=== PATIENT | female | born 1960 | race American Indian/Alaskan Native ===

== ENCOUNTER 2017-01-07 08:33 | Outpatient (CLI) | payer BC ==
[2017-01-07 09:07] LABS: Blood Urea Nitrogen 11 mg/dL (7-17)
[2017-01-07] MEDS ORDERED: NACL ONE (09:12)
--- NOTE | 2017-01-07 12:29 | Cat Scan Report ---
CT ABDOMEN AND PELVIS WITHOUT AND WITH CONTRAST INDICATION: Hematuria. COMPARISON: None similar. FINDINGS: Abdomen and pelvis CT performed before and after intravenous administration of 100 cc of Omnipaque 300. 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 Slight nonspecific distal esophageal prominence/thickening. Normal heart size. No effusions. ABDOMEN: Precontrast images demonstrate cholecystectomy clips. Numerous small bilateral renal nonobstructing calculi/calcifications, at least 5 in number on either side measure 4 mm or smaller. Postcontrast images demonstrate unremarkable liver, spleen, pancreas, nonaneurysmal abdominal aorta, IVC and non-hydronephrotic kidneys. No ascites or size significant adenopathy. Slight diffuse bilateral adrenal prominence/possible hyperplasia. Nonopacified GI tract evaluation limited, though grossly nonobstructive. Mild colonic stool, most along the ascending colon. Rectus diastasis by approximately 6 cm transverse noted about the umbilicus with mild outward hernia-like bowing. PELVIS: Uterine fibroids suspected, including approximately 3 cm on the right, axial image 237, series 4. Few pelvic phleboliths. Unremarkable urinary bladder and the rectosigmoid. No free fluid or significant adenopathy. Approximately 8mm anterolisthesis of L5 over S1 with severe bilateral facet arthropathy and moderate to severe disc narrowing. Moderate bilateral facet arthropathy at L4-L5 also noted. CONCLUSION: 1. Multiple bilateral nonobstructing renal calculi, as described. 2. Various other incidental findings, including those at the lung bases, cholecystectomy, rectus diastasis, uterine fibroids and advanced lower lumbar spine degenerative changes, amongst others, as above. Thank you for the opportunity to participate in this patient's care.
== END 2017-01-07 08:34 | disposition home or self-care (01) ==
LOC: CT 08:33
PROVIDERS: ATTEND Urology
DX: N20.0 Calculus of kidney (principal); D25.9 Leiomyoma of uterus, unspecified; Q79.59 Other congenital malformations of abdominal wall; M47.896 Other spondylosis, lumbar region; M12.88 Other specific arthropathies, not elsewhere classified, other specified site; R31.9 Hematuria, unspecified; Z90.49 Acquired absence of other specified parts of digestive tract
CPT/HCPCS: 36415; 74178; 82565; 84520; Q9967

== ENCOUNTER 2017-01-22 10:23 | Day surgery (SDC) | payer BC ==
[~2017-01-22 10:23] MED LIST: ANCEF/STERILE WATER 2 GM/20 ML 2 GM/20 ML SYRINGE IV NR
[2017-01-22] MEDS ORDERED: DECADRON ONE (11:23)
[2017-01-22] MEDS ORDERED: ZOFRAN ONE (11:23)
[2017-01-22] MEDS ORDERED: XYLOCAINE MPF 2% ONE (11:23)
[2017-01-22] MEDS ORDERED: DIPRIVAN 10 MG/ML IV ONE (11:24)
[2017-01-22] MEDS ORDERED: SUBLIMAZE ONE (11:24)
[2017-01-22] MEDS ORDERED: NACL 0.9% 1000 ML 1,000 ML ONE (11:25)
[2017-01-22] MEDS ORDERED: DILAUDID IV PRN (11:54)
[2017-01-22] MEDS ORDERED: ZOFRAN IV PRN (11:54)
[2017-01-22] MEDS ORDERED: PERCOCET 5/325 PO PRN (11:54)
[2017-01-22] MEDS ORDERED: VERSED IV NR (12:00)
[2017-01-22] MEDS ORDERED: NACL 0.9% 1000 ML 1,000 ML IV SCH (12:00)
[2017-01-22] MEDS ORDERED: PEPCID PO NR (12:00)
--- NOTE | 2017-01-22 12:04 | Anesthesia Consultation ---
Anesthesia Consult and Med Hx Date of service: 01/22/17 - Airway Anesthetic Teeth Evaluation: Good ROM Head & Neck: Adequate Mental/Hyoid Distance: Adequate Mallampati Class: Class II Intubation Access Assessment: Probably Good - Pulmonary Exam CTA: Yes - Cardiac Exam Cardiac Exam: RRR - Pre-Operative Health Status ASA Pre-Surgery Classification: ASA2 Proposed Anesthetic Plan: General - Pulmonary Hx Smoking: No Hx Sleep Apnea: No ([place] PRE SCREEN HIGH RISK) - Cardiovascular System Hx Hypertension: Yes ("JUST WATCHING"- NO MEDS) Hx Peripheral Vascular Disease: No - Central Nervous System Hx Seizures: No CVA: No Hx Psychiatric Problems: Yes (ANXIETY) - Gastrointestinal Hx Gastroesophageal Reflux Disease: Yes - Endocrine Hx Renal Disease: No (STONES) Hx Insulin Dependent Diabetes: No Hx Non-Insulin Dependent Diabetes: No Hx Hypothyroidism: No - Other Systems Hx Obesity: Yes
--- NOTE | 2017-01-22 12:04 | Anesthesia Day of Surgery ---
Anesthesia Day of Surgery - Day of Surgery Patient Examined: Yes Patient H&P Reviewed: Yes Patient is NPO: Yes
[2017-01-22] MEDS ORDERED: ANCEF ONE ×2 (12:43)
[2017-01-22] MEDS ORDERED: ANCEF/STERILE WATER 2 GM/20 ML 2 GM/20 ML SYRINGE IV NR (13:00)
[2017-01-22] MEDS ORDERED: WATER FOR IRRIG STERILE IR ONE (13:03)
[2017-01-22] MEDS ORDERED: OMNIPAQUE 300 MG/50 ML (CATH LAB) IV ONE (13:04)
--- NOTE | 2017-01-22 13:20 | Post Anesthesia Evaluation ---
- Post Anesthesia Evaluation Patient Participated: Yes Airway Patent: Yes Stable Respiratory Function: Yes Nausea/Vomiting: No Temp > 96.8F: Yes Pain Manageable: Yes Adequeate Hydration: Yes Anesthesia Complications: No
--- NOTE | 2017-01-22 13:28 | Post Operative Note ---
Date of procedure: 01/22/17 Pre-op diagnosis: hematuria Post-op diagnosis: same Findings: normal cystocele Procedure: cysto rpgs Anesthesia: NASIM Surgeon: JOSELYN LOCKE Estimated blood loss: none Pathology: none Condition: stable Disposition: PACU
--- NOTE | 2017-01-22 13:29 | Discharge Summary ---
Short Stay Discharge Plan Activity: no restrictions Weight Bearing Status: Full Weight Bearing Diet: low fat, low cholesterol, low salt Special Instructions: other (inc fluids ) Follow up with: DR SAMARIA [Other] - 7 Days JOSELYN LOCKE MD [Staff Physician] - 14 Days
[2017-01-22] MEDS ORDERED: PERCOCET 5/325 PO ONE (16:00)
[2017-01-22 17:26] VITALS: BP 110/52
--- NOTE | 2017-01-23 09:31 | Fluoroscopy Report ---
Retrograde pyelogram: Hematuria. Injections of contrast made into the distal ureters bilaterally with good opacification of the ureters and intrarenal collecting systems. No filling defects, contour abnormality, or other finding. Impression: Normal exam.
--- NOTE | 2017-01-27 09:13 | Post Operative Note ---
Date of procedure: 01/27/17 Pre-op diagnosis: painful voiding Post-op diagnosis: same Findings: No bladder lesions Procedure: Cystoscopy hydrodistention urethral dilatation retrogrades Procedure Preop diagnosis painful voiding microscopic hematuria Postoperative diagnosis the same Procedure cystoscopy hydrodistention retrogrades Surgeon Dr.'s wright Anesthesia Gen. Findings\ This is a patient with painful voiding irritative symptoms who now presents for cystoscopy . Procedure Patient was brought to the operating room placed on the operating table. Following induction of general anesthesia placed in the lithotomy position prepped and draped in usual sterile fashion Cystoscopy showed a normal urethra and normal bladder epithelium. However the urethra was slightly narrow and tight and was dilated. There were no bladder lesions no biopsies were obtained. The capacity was good. Patient procedure well the retrograde showed no persistent filling defects. The dictation was delayed because of the dictation [place] was delayed. There was an outage of all the dictation throughout the country Patient tolerance procedure well there were no acute findings or to recovery room in stable condition Anesthesia: GETA Surgeon: JOSELYN LOCKE Estimated blood loss: none Pathology: none Condition: stable Disposition: PACU
== END 2017-01-22 16:30 | disposition home or self-care (01) ==
LOC: OR 10:23
PROVIDERS: ATTEND Urology
DX: N35.9 Urethral stricture, unspecified (principal); I10 Essential (primary) hypertension; F41.9 Anxiety disorder, unspecified; K21.9 Gastro-esophageal reflux disease without esophagitis; E66.9 Obesity, unspecified; Z68.32 Body mass index [BMI] 32.0-32.9, adult; Z87.440 Personal history of urinary (tract) infections
CPT/HCPCS: 52281; 74420; A4217; J0690; J1100; J2250; J2405; J2704; J7030; Q9967; J3010

== ENCOUNTER 2020-10-04 21:27 | Emergency (ER) | payer BC, OTHER ==
[2020-10-04 21:53] VITALS: BP 128/65
--- NOTE | 2020-10-04 23:10 | Event Note ---
ED Screening Note Date of service: 10/04/20 Time: 23:05 ED Screening Note: This initial assessment/diagnostic orders/clinical plan/treatment(s) is/are subject to change based on patients health status, clinical progression and re- assessment by fellow clinical providers in the ED. Further treatment and workup at subsequent clinical providers discretion. Patient/guardian urged not to elope from the ED as their condition may be serious if not clinically assessed and managed. Initial orders include:
--- NOTE | 2020-10-04 23:11 | Emergency Department Report ---
Chief Complaint: Vaginal Bleeding Stated Complaint: VAGINANL BLEEDING/UTERINE POLYPS Time Seen by Provider: 10/04/20 23:10 - HPI History of Present Illness: 60-year-old female with a history of uterine polyp who sees Dr. Leon at [facility] presents the ED today complaining of moderate heavy vaginal bleeding that began today. Patient states that initially began light vaginal bleeding a week ago when she went to follow-up with Dr. Leon who got an ultrasound in the office. Patient states that she was told to return on Friday and has an appointment in 5 days. Patient denies any fever, chills, nausea vomiting, fatigue, dizziness, headache, light headedness or any other symptoms. Patient states that she just got worried because bleeding was heavy today so she came to the ED. Patient states she has had a uterine polyp for some years and has been following up with Dr. Leon since then. - ROS Review of Systems: As noted in HPI - Exam Vital Signs: Vital Signs 10/04/20 21:51 Temperature 99.1 F Pulse Rate 78 Respiratory 22 Rate Blood Pressure 128/65 O2 Sat by Pulse 98 Oximetry Physical Exam: GENERAL: Alert and oriented x3, no apparent distress, Normal Gait, atraumatic. HEAD: Head is normocephalic and a-traumatic. Conjunctive is pink and moist LUNGS: Symetrical with respiration, No wheezing, no rales or crackles, CTAB. HEART: S1, S2 present, regular rate and rhythm without murmur, no rubs, no gallops. Non tender to palpation ABDOMEN: No organomegaly was noted,Positive bowel sounds, soft, and non- distended. EXTREMITIES/MUSCULOSKELETAL: No cyanosis, clubbing, rash, lesions or edema. Full ROM bilaterally. Capillary refill present 2+ NEUROLOGIC: The patient is cooperative with no focal neurologic deficits. SKIN: Warm and dry, No lesions, No ulceration or induration present. MSE screening note: Focused history and physical exam performed. Due to findings the following was ordered: ED Medical Decision Making - Medical Decision Making This 60-year-old female presents with uterine polyp. Plan is to follow-up with Dr. Leon on Friday and keep her appointment. Bleeding protocol discussed with patient. Discussed with patient has any worsening bleeding or new symptoms to return to ED immediately. Patient states she has been feeling her usual self and not symptomatic. ED Disposition for [facility] Clinical Impression: Abnormal uterine bleeding due to endocervical polyp Disposition: - TO HOME OR SELFCARE Is pt being admited?: No Does the pt Need Aspirin: No Condition: Stable Instructions: Abnormal Uterine Bleeding Additional Instructions: Make sure to follow up with the [facility] as discussed. Take all your medications as you've been prescribed. If you have any worsening symptoms or develop new symptoms please return to ED immediately. Prescriptions: Ibuprofen [Motrin] 800 mg PO Q8HR #30 tablet traMADoL [Ultram 50 MG tab] 50 mg PO Q6HR PRN #20 tablet PRN Reason: Pain Referrals: PRIMARY CARE, [Primary Care Provider] - 3-5 Days ESTER LEON MD [Staff Physician] - 3-5 Days Forms: Work/School Release Form(ED) Time of Disposition: 23:57
== END 2020-10-05 01:11 | disposition home or self-care (01) ==
LOC: ED 21:27
DX: N84.0 Polyp of corpus uteri (principal)
CPT/HCPCS: 99282

== ENCOUNTER 2021-05-25 08:11 | Day surgery (SDC) | payer OTHER ==
[2021-05-23 13:03] LABS: Hematocrit 42.6 % (30.3-42.9); Hemoglobin 13.7 gm/dl (10.1-14.3); Mean Corpuscular HGB Conc 32 % (30-34); Mean Corpuscular Volume 81 fl (79-97); Platelet Count 282 K/mm3 (140-440); Red Blood Count 5.24 M/mm3 (3.65-5.03); Red Cell Distribution Width 14.2 % (13.2-15.2)
[~2021-05-25 08:11] MED LIST changes: -ANCEF/STERILE WATER 2 GM/20 ML 2 GM/20 ML SYRINGE IV NR; +LACTATED RINGERS 1,000 ML IV SCH; +MIDAZOLAM 2 MG/2 ML INJ IV NR
--- NOTE | 2021-05-25 08:29 | Anesthesia Consultation ---
Anesthesia Consult and Med Hx Date of service: 05/25/21 - Airway Anesthetic Teeth Evaluation: Good ROM Head & Neck: Adequate Mental/Hyoid Distance: Adequate Mallampati Class: Class III Intubation Access Assessment: Possibly Difficult - Pre-Operative Health Status ASA Pre-Surgery Classification: ASA1 Proposed Anesthetic Plan: General - Pulmonary Hx Smoking: No Hx Respiratory Symptoms: No - Cardiovascular System Hx Hypertension: No - Central Nervous System CVA: No - Endocrine Hx Renal Disease: No Hx Liver Disease: No Hx Insulin Dependent Diabetes: No Hx Non-Insulin Dependent Diabetes: No Hx Thyroid Disease: No - Other Systems Hx Obesity: Yes (BMI 32) - Additional Comments Anesthesia Medical History Comments: No hx anesthetic complications.
--- NOTE | 2021-05-25 08:29 | Anesthesia Day of Surgery ---
Anesthesia Day of Surgery - Day of Surgery Patient Examined: Yes Patient H&P Reviewed: Yes Patient is NPO: Yes
[2021-05-25] MEDS ORDERED: HYDROmorphone 1 MG/1 ML INJ IV PRN (09:30)
[2021-05-25] MEDS ORDERED: ONDANSETRON 4 MG/2 ML INJ IV PRN (09:30)
[2021-05-25] MEDS ORDERED: HYDROcodone/ACETAMINOPHEN 5-325 MG TAB PO PRN (09:30)
[2021-05-25] MEDS ORDERED: fentaNYL 100 MCG/2 ML INJ ONE (09:53)
[2021-05-25] MEDS ORDERED: propofoL 200 MG/20 ML VIAL IV ONE (09:53)
[2021-05-25] MEDS ORDERED: ONDANSETRON 4 MG/2 ML INJ ONE (09:53)
[2021-05-25] MEDS ORDERED: LIDOCAINE MPF (2%) 20 MG/1 ML VIAL 5 ML ONE (09:53)
[2021-05-25] MEDS ORDERED: KETOROLAC 30 MG/1 ML INJ ONE (10:21)
[2021-05-25] MEDS ORDERED: dexAMETHasone 20 MG/5 ML VIAL ONE (10:21)
[2021-05-25] MEDS ORDERED: SODIUM CHLORIDE 0.9% IRRIG SOLN 2000 ML IR ONE (10:38)
--- NOTE | 2021-05-25 11:06 | Operative Report ---
Operative Report Operative Report: Preoperative diagnosis: Postmenopausal bleeding, endometrial polyp Postoperative diagnosis: Same Procedure: Hysteroscopy dilation and curettage with endometrial polypectomy Surgeon: Dr. Arleen Clifford Anesthesia: GETA EBL: Minimal Urine output: None IV fluids:250ml Complications: none Finding: atrophic endometrium, ~2cm endometrial polyp Procedure: Patient was counseled in preop holding area about risks benefits possible complications as well as alternatives to the procedure. Informed consent was obtained. She was taken to the OR where she received excellent general endotracheal anesthesia. She was then placed in a dorsal lithotomy position. Exam under anesthesia revealed normal size uterus, smooth parametria with no adnexal or rectal masses. Patient was then prepped and draped in a sterile fashion. A timeout was verified. Patient was straight cathed with a red rubber catheter, with 100ml clear urine obtained. A speculum was placed in the vaginal vault, the cervix was noted to be pink with no lesions. A single- tooth tenaculum was placed on the anterior lip of the cervix and the endometrium sounded to 7cm. The cervix was then dilated to allow for the passage of the hysteroscope. The uterus was hydrodistended, the endometrium was noted to be atrophic with a 2cm fundal endometrial polyp. The polyp was removed via polyp forceps and then a sharp curettage was performed with the Kevorkian curette. Endometrial samplings were sent to pathology. A second pass with the hysteros cope revealed complete removal of the polyp wth no residual tissue. At the completion of the procedure the hysteroscope, tenaculum, and speculum were removed from the uterus cervix and vagina respectively. EBL minimal. Patient extubated and taken to the PACU in stable condition. Patient's family notified of stable condition for completion of the procedure. All sponge needle instrument counts correct x2. Patient will follow-up in the outpatient setting in 1 week. Mars SCHWARTZ
[2021-05-25 18:02] VITALS: BP 110/63
== END 2021-05-25 08:12 | disposition home or self-care (01) ==
LOC: OR 08:11
PROVIDERS: ATTEND Obstetrics & Gynecology
DX: N95.0 Postmenopausal bleeding (principal); N84.0 Polyp of corpus uteri; Z20.822 Contact with and (suspected) exposure to COVID-19; E66.01 Morbid (severe) obesity due to excess calories; Z68.32 Body mass index [BMI] 32.0-32.9, adult; Z79.899 Other long term (current) drug therapy; Z90.49 Acquired absence of other specified parts of digestive tract; Z98.51 Tubal ligation status; Z98.890 Other specified postprocedural states
CPT/HCPCS: 36415; 58558; 85027; 88305; A4217; J1100; J1885; J2405; J2704; J3010; J7120; U0003